=== PATIENT | male | born 2000 | race Caucasian/White ===

== ENCOUNTER 2019-05-06 17:41 | Emergency (ER) | payer BC ==
[2019-05-06 18:06] VITALS: BP 136/69
[2019-05-06] MEDS ORDERED: HYDROcodone/ACETAMIN 5-325 MG* 1 TAB PO ONE (18:30)
--- NOTE | 2019-05-06 18:35 | UC ---
Hand/Wrist HPI - HPI Summary HPI Summary: SEVERAL HOURS WELDER PATIENT JAMMED HIS RIGHT FOURTH FINGER INTO ANOTHER PLAYER WHILE PLAYING FOOTBALL. COMES IN WITH PAIN, SWELLING AND SLIGHT DEFORMITY OF RIGHT FOURTH FINGER. - History Of Current Complaint Chief Complaint: UCUpperExtremity Stated Complaint: FINGER INJURY Time Seen by Provider: 05/06/19 18:23 Hx Obtained From: Patient Onset/Duration: Sudden Onset, Lasting Hours, Still Present Severity Initially: Moderate Severity Currently: Moderate Pain Intensity: 3 Pain Scale Used: 0-10 Numeric Character Of Pain: Sharp Aggravating Factor(s): Movement Alleviating Factor(s): Rest Associated Signs And Symptoms: Positive: Swelling Related History: Dominant Hand Right - Allergies/Home Medications Allergies/Adverse Reactions: Allergies Allergy/AdvReac Type Severity Reaction Status Date / Time Penicillins Allergy Severe Anaphylatic Verified 05/06/19 18:06 Shock Home Medications: Home Medications Albuterol HFA INHALER* [Ventolin HFA Inhaler*] 2 puff INH Q4H PRN 05/06/19 [ History Confirmed 05/06/19] PMH/Surg Hx/FS Hx/Imm Hx Respiratory History: Asthma - Surgical History Surgical History: None - Family History Known Family History: Positive: Non-Contributory - Social History Alcohol Use: Occasionally Substance Use Type: None Smoking Status (MU): Never Smoked Tobacco Review of Systems All Other Systems Reviewed And Are Negative: Yes Constitutional: Positive: Negative Skin: Positive: Negative Respiratory: Positive: Negative Cardiovascular: Positive: Negative Gastrointestinal: Positive: Negative Musculoskeletal: Positive: Arthralgia, Decreased ROM, Edema Physical Exam Triage Information Reviewed: Yes Appearance: Well-Appearing, No Pain Distress, Well-Nourished Vital Signs: Initial Vital Signs Temp 98.9 F 05/06/19 18:00 Pulse 66 05/06/19 18:00 Resp 18 05/06/19 18:00 BP 136/69 05/06/19 18:00 Pulse Ox 100 05/06/19 18:00 Vital Signs Reviewed: Yes Eyes: Positive: Conjunctiva Clear ENT: Positive: Hearing grossly normal Neck: Positive: Supple Respiratory: Positive: No respiratory distress, No accessory muscle use Cardiovascular: Positive: Pulses Normal Abdomen Description: Positive: Soft Musculoskeletal: Positive: ROM Limited @ - RIGHT 4TH FINGER, Edema @ - RIGHT 4TH FINGER, Other: - TTP RIGHT 4TH FINGER MIDDLE PHALANX AND DIP/PIP JOINTS. MILD LATERAL DEVIATION Neurological: Positive: Alert Psychological: Positive: Age Appropriate Behavior Skin: Negative: Rashes Diagnostics - Radiology RIGHT 4TH FINGER XRAYS Radiology Interpretation Completed By: ED Physician Summary of Radiographic Findings: SLIGHTLY DISPLACED [place] FRACTURE MIDDLE PHALANX Hand/Wrist Course/Dx - Course Course Of Treatment: RIGHT FOURTH FINGER X-RAY SHOWS SLIGHTLY DISPLACED FRACTURE OF THE MIDDLE PHALANX ON MY INITIAL INTERPRETATION. OFFICIAL RADIOLOGY READ IS PENDING. FINGER SPLINTED BY RN. PATIENT WILL CALL ORTHOPEDICS FIRST THING IN THE MORNING FOR AN APPOINTMENT TO BE SEEN THAT DAY. IBUPROFEN FOR DISCOMFORT. HYDROCODONE/APAP FOR BREAKTHROUGH. JAVA SDET UNREMARKABLE. Reference #: [id number] - Differential Dx/Diagnosis Provider Diagnosis: Displaced fracture of middle phalanx of right ring finger Discharge ED - Sign-Out/Discharge Documenting (check all that apply): Patient Departure All imaging exams completed and their final reports reviewed: No - Discharge Plan Condition: Stable Disposition: HOME Prescriptions: HYDROcodone/ACETAMIN 5-325 MG* [[place] 5-325 TAB*] 1 tab PO Q6H PRN #15 tab MDD 4 PRN Reason: Pain Patient Education Materials: Finger Fracture (ED) Forms: *School Release Referrals: Raghav Mendez MD [Medical Doctor] - 1 Day [facility] [Provider Group] - If Needed Additional Instructions: X-RAY SHOWS A SLIGHTLY DISPLACED FRACTURE OF YOUR RIGHT FOURTH FINGER ON MY INITIAL INTERPRETATION. WE WILL CALL YOU TOMORROW IF THE RADIOLOGY READ DIFFERS. KEEP THE SPLINT ON UNTIL SEEN BY ORTHOPEDICS. CALL ORTHOPEDICS FIRST THING TOMORROW MORNING FOR AN APPOINTMENT TO BE SEEN THAT DAY. IBUPROFEN NEEDED FOR DISCOMFORT. HYDROCODONE FOR BREAKTHROUGH. IBUPROFEN MAX DOSE: 600MG (3 TABS) EVERY 6 HRS OR 800MG (4 TABS) EVERY 8 HRS OR NAPROXEN MAX DOSE: 440MG (2 TABS) EVERY 12 HRS TYLENOL MAX DOSE: 1000MG (2 EXTRA STRENGTH TABS) EVERY 8 HRS OR 650MG (2 REGULAR TABS) EVERY 6 HRS - Billing Disposition and Condition Condition: STABLE Disposition: Home
== END 2019-05-06 18:50 | disposition home or self-care (01) ==
LOC: UCEAST 17:41
DX: S62.624A Displaced fracture of middle phalanx of right ring finger, initial encounter for closed fracture (principal); J45.909 Unspecified asthma, uncomplicated; Z88.0 Allergy status to penicillin; W23.0XXA Caught, crushed, jammed, or pinched between moving objects, initial encounter; Y93.61 Activity, american tackle football; Y92.9 Unspecified place or not applicable
CPT/HCPCS: 73140; 99203; G0463